=== PATIENT | male | born 1950 | race Caucasian/White ===

== ENCOUNTER → 2016-05-16 | Outpatient (CLI) | payer BC ==
[~2016-05-16] MED LIST: CARI350T28 PO; LRT5 PO
[2016-05-16 12:32] LABS: THYROID STIMULATING HORMONE 0.161 uIu/ml (0.300-4.500)
== END | disposition home or self-care (01) ==
LOC: C.LAB1850 10:48
PROVIDERS: ATTEND Internal Medicine Endocrinology, Diabetes & Metabolism
DX: E03.9 Hypothyroidism, unspecified (principal)

== ENCOUNTER → 2016-12-12 | Outpatient (CLI) | payer BC ==
[2016-12-12 13:38] LABS: THYROID STIMULATING HORMONE 0.112 uIu/ml (0.300-4.500)
== END | disposition home or self-care (01) ==
LOC: C.LABBFT 10:18
PROVIDERS: ATTEND Internal Medicine Endocrinology, Diabetes & Metabolism
DX: E03.9 Hypothyroidism, unspecified (principal)

== ENCOUNTER → 2017-02-11 | Outpatient (CLI) | payer BC ==
[2017-02-11 17:53] LABS: THYROID STIMULATING HORMONE 0.369 uIu/ml (0.300-4.500)
== END | disposition home or self-care (01) ==
LOC: C.LABBFT 13:34
PROVIDERS: ATTEND Internal Medicine Endocrinology, Diabetes & Metabolism
DX: E06.3 Autoimmune thyroiditis (principal)

== ENCOUNTER → 2017-06-25 | Outpatient (CLI) | payer BC ==
[2017-06-25 12:52] LABS: ALBUMIN 3.9 gm/dl (3.4-5.0); ALT/SGPT 25 U/L (12-78); AST/SGOT 23 U/L (15-37); BLOOD UREA NITROGEN 18 mg/dl (7-18); CALCIUM 8.1 mg/dl (8.5-10.1); CARBON DIOXIDE 25 mmol/L (21-32); CREATININE 1.17 mg/dl (0.60-1.40); GLUCOSE 102 mg/dl (70-99); POTASSIUM 4.2 mmol/L (3.5-5.1); SODIUM 133 mmol/L (136-145)
[2017-06-25 13:08] LABS: ALKALINE PHOSPHATASE 60 U/L (45-117); CHOLESTEROL 90 mg/dl (0-200); LDL CHOLESTEROL CALCULATED 40 mg/dl; TOTAL PROTEIN 6.7 gm/dl (6.4-8.2)
== END | disposition home or self-care (01) ==
LOC: C.LABBFT 10:05
PROVIDERS: ATTEND Internal Medicine Interventional Cardiology
DX: E78.5 Hyperlipidemia, unspecified (principal); E03.9 Hypothyroidism, unspecified